=== PATIENT | male | born 1985 | race African-American/Black ===

== ENCOUNTER 2020-09-23 03:12 | Observation (INO) ==
[2020-09-23] MEDS ORDERED: levETIRAcetam 500 MG/5 ML VIAL IV ONE (03:45)
[2020-09-23] MEDS ORDERED: LORazepam 2 MG/1 ML VIAL ONE (03:45)
[2020-09-23] MEDS ORDERED: LORazepam 2 MG/1 ML VIAL IV STA (03:49)
[2020-09-23] MEDS ORDERED: SODIUM CHLORIDE 0.9% 500 ML IV STA (03:49)
[2020-09-23 04:17] LABS: Basophils % 0.2 % (0.0-0.8); Eosinophils # 0.2 10*3/uL (0.0-0.87); Eosinophils % 1.1 % (0.00-10.9); Hemoglobin 13.8 GM/DL (14.0-18.0); Immature Granulocytes % 0.6 %; Immature Granulocytes Absolute 0.09 #; Lymphocytes # 2.9 10*3/uL (1.4-4.0); Lymphocytes % 19.3 % (21.2-54.2); Mean Corpuscular HGB Conc 30.7 GM/DL (32-36); Mean Corpuscular Volume 98.3 FL (87-102); Mean Platelet Volume 9.8 FL (9.6-12.0); Monocytes % 7.9 % (1.7-12.7); Neutrophils % 70.9 % (38.7-73.9); Platelet Count 347 T/CUMM (130-400); Red Blood Count 4.58 MC/CUMM (3.8-5.5); Red Cell Distribution Width 14.2 % (9.3-17.3); White Blood Count 15.1 T/CUMM (4-12)
[2020-09-23 04:35] LABS: Platelet Estimate Adequate
[2020-09-23 04:37] LABS: Alanine Aminotransferase 15 U/L (16-61); Albumin 3.5 G/DL (3.4-5.0); Alkaline Phosphatase 92 U/L (45-117); Aspartate Amino Transferase 16 U/L (0-37); Blood Urea Nitrogen 12 MG/DL (7-18); Calcium 8.8 MG/DL (8.5-10.1); Carbon Dioxide 16 MMOL/L (21-32); Estimated Glom Filtration Rate 76 ML/MIN; Glucose 140 MG/DL (74-106); Sodium 143 MMOL/L (136-145); Total Protein 6.9 G/DL (6.4-8.2); Troponin I < 0.015 NG/ML (0.00-0.045)
[2020-09-23] MEDS ORDERED: POTASSIUM CHLORIDE RIDER 20 MEQ in PREMIX 1 EACH IV STA (04:48)
[2020-09-23] MEDS ORDERED: POTASSIUM CHLORIDE RIDER 200 ML IV ONE (05:24)
[2020-09-23 05:28] LABS: Amorphous Crystals,Urine Occasional /HPF (Few); Bacteria,Urine Occasional /HPF (Few); Bilirubin,Urine Negative (Negative); Blood, Urine Small mg/dL (Negative); Glucose,Urine (UA) Negative (Negative); Granular Casts,Urine 3 /LPF (0-1); Hyaline Casts,Urine 15 /LPF (0-3); Ketones,Urine Negative (Negative); Mucus,Urine Moderate /LPF (Occasional); Nitrite,Urine Negative (Negative); Protein,Urine >=500 MG/DL; RBC,Urine 7 /HPF (0-4); Squamous Epithelial Cell,Urine Occasional /HPF (0-10); Urine Appearance Slightly Hazy (Clear); Urine Color Yellow (Yellow); Urine Specific Gravity 1.024 (1.001-1.035); Urine Urobilinogen < 2.0 EU/DL (0.2-1.0); WBC,Urine 3 /HPF (0-6)
[2020-09-23] MEDS ORDERED: LORazepam 2 MG/1 ML VIAL IV PRN (05:29)
[2020-09-23] MEDS ORDERED: GLUCAGON 1 MG VIAL IM PRN (05:30)
[2020-09-23] MEDS ORDERED: SODIUM CHLORIDE 0.9% 1,000 ML IV SCH (05:30)
[2020-09-23] MEDS ORDERED: DOCUSATE SODIUM 100 MG CAPSULE PO PRN (05:30)
[2020-09-23] MEDS ORDERED: ACETAMINOPHEN 325 MG TABLET PO PRN (05:30)
[2020-09-23] MEDS ORDERED: DEXTROSE 50% 25 GM/50 ML VIAL IV PRN (05:30)
[2020-09-23] MEDS ORDERED: ONDANSETRON 4 MG/2 ML VIAL IV PRN (05:30)
[2020-09-23 05:31] LABS: Barbiturates Screen,Urine Negative (Negative); Benzodiazepines Screen,Urine Negative (Negative); Cannabinoid Screen,Urine Positive (Negative); Opiate Screen,Urine Negative (Negative); Phencyclidine Screen,Urine Negative (Negative)
[2020-09-23] MEDS ORDERED: POTASSIUM CHLORIDE RIDER 10 MEQ in PREMIX 1 EACH IV PRN (05:46)
[2020-09-23 15:57] VITALS: BP 110/66
[2020-09-23] MEDS ORDERED: levETIRAcetam 500 MG TABLET PO SCH (21:00)
== END 2020-09-23 17:19 | disposition home or self-care (01) ==
LOC: EDUNIT# → N.ED 03:12 → N.EDINP 03:12 → N.3E 06:19
PROVIDERS: ADMIT Internal Medicine; ATTEND Internal Medicine